=== PATIENT | male | born 1940 | race Caucasian/White ===

== ENCOUNTER 2016-06-16 19:51 | Inpatient (IN) | payer MEDICARE ==
[~2016-06-16] VITALS: Ht 175.3 cm; Wt 79.0 kg
[~2016-06-16 19:51] MED LIST: ACETAMIN325 MG PO; ALEVE220 M1 PO; ALPRAZOLAM0.5 MG PO; ASPIRIN EC81 MG PO; AUGMENTIN500TAB PO; AVELOX400 MG PO; BACLOFEN10 MG PO; BL ADULT ASA81 MG PO; CALCIUM600 M1 OR; CARB/LEVO1 TA5 PO; CIPRO500 MG OR; CIPRO500 MG PO; CIPROFLOXACIN250 MG PO; CIPROFLOXACN500 MG PO; DICYCLOMINE10 MG; DICYCLOMINE10 MG PO; DONEPEZIL10 MG PO; DONEPEZIL5 MG PO; DULCOLAX10 MG RE; E400400 UNIT OR; EC ASPIRIN325 M1 PO; EQ ASPIRIN325 MG OR; FISH OIL300 MG PO; FLEET ENEMA RE; FLOMAX0.4 M1 PO; FLUARIX QUADRIV1 IN1 IM; FUROSEMIDE20 MG PO; GNP RED YEAST RICE OR; HALDOL0.5 MG/TAB PO; HALOPERIDOL0.5 MG PO; HOME O2; IPRATROPIU0.5 MG/3 M IN; KAO-TIN240 MG PO; KLOR-CON 1010 ME1 PO; LASIX 40 MG TAB40 MG PO; LASIX20 MG OR; LEXAPRO20 MG PO; LISINOPRIL10 MG PO; LISINOPRIL20 MG OR; LISINOPRIL20 MG PO; LOPRESSOR 550 MG/TAB PO; LOSARTAN POT50 MG PO; LOTRISONE CREAM15 G1 EX; MEDDOSEPAK PO; METOPROL TAR25 MG PO; MILK OF MAG30 ML/UDC PO; MOBIC15 MG OR; MOTRIN800 MG/TAB PO; MULTIVITAM10 OR; MULTIVITAMI1 OR; MULTIVITAMI1 PO; NAMENDA10 MG PO; NITRO-DUR0.4 MG/HR TD; NITROGLYCER0.2 MG/HR TD; NITROGLYCER0.4 MG SL; NORCO1 TAB PO; OSCAL 500/1 TAB OR; OXYBUTYNIN5 MG PO; PLAVIX75 MG PO; POTASSIUM CHLO10 ME2 PO; PRILOSEC20 MG/CAP PO; PROAIR HFA IN; REMERON15 MG PO; ROBITUSSIN200 MG/10 PO; SEROQUEL25 MG PO; SEROQUEL50 MG PO; SIMVASTATIN10 MG OR; SIMVASTATIN5 MG OR; SINEMET 25/1001 TA2 PO; TUSSIN100 MG/5 M OR; VANTIN100 MG PO; VITAMIN D32000 UNIT OR; WATER PILL; ZITHROMAX500 MG PO; [UNRECOGNIZED DRUG - CODE] OR; [UNRECOGNIZED DRUG - CODE] PO; [UNRECOGNIZED DRUG - OTHER]; [UNRECOGNIZED DRUG - OTHER] MT; [UNRECOGNIZED DRUG - OTHER] MT
[2016-06-16 20:33] LABS: HEMATOCRIT 42.8 % (39.0-50.0); HEMOGLOBIN 13.1 g/dl (14.0-18.0); IMMATURE GRANULOCYTES 0.3 % (0.0-1.0); MEAN CORPUSCULAR HGB 30.6 pG CALC (26.0-32.0); MEAN CORPUSCULAR HGB CONC 30.6 g/L CALC (32.0-36.0); NEUT# 7.43 thou/uL (1.82-7.42); RED BLOOD COUNT 4.28 mill/uL (4.70-6.10); RED CELL DISTRI WIDTH 13.5 % (11.5-15.5)
--- NOTE | 2016-06-16 20:50 | NUR ---
PT TO CT.
--- NOTE | 2016-06-16 21:19 | NUR ---
PT RETURNED FROM CT.
--- NOTE | 2016-06-16 21:20 | NUR ---
UNABLE TO CATH FOR URINE WITH SMALL CATHETER
[2016-06-16 22:28] LABS: MYOGLOBIN 68 ng/mL (0 - 121)
[2016-06-16 22:36] LABS: ALBUMIN 3.3 g/dL (3.2-5.0); ALKALINE PHOSPHATASE 68 u/l (38-126); BILIRUBIN, TOTAL 0.5 mg/dL (0.0-1.4); CARBON DIOXIDE 24 mmol/l (22-30); SGOT/AST 34 u/l (19-48); SGPT/ALT 47 u/l (11-66); TOTAL PROTEIN 6.3 g/dL (6.3-8.2)
[2016-06-16 22:38] LABS: GLUCOSE 117 mg/dL (82-115)
[2016-06-16 22:39] LABS: ANION GAP 17 (6-22 (CALC)); BUN 56 mg/dL (8-23); BUN/CREATININE RATIO 47 (12-20 (CALC)); CALCIUM 8.7 mg/dL (8.4-10.2); CHLORIDE 130 mmol/l (95-108); CREATININE 1.2 mg/dL (0.7-1.3); GFR 59 ML/MIN (>=60 (CALC)); GFR FOR AFR.AMER. > 60 ML/MIN (>=60 (CALC)); POTASSIUM 3.8 mmol/l (3.5-5.1); SODIUM 167 mmol/l (137-146)
--- NOTE | 2016-06-16 22:53 | NUR ---
PT WITH EYES CLOSED, RESPONDS TO LOUD VERBAL STIMULI. DR CERNA INFORMED UNABLE TO PASS STRAIGHT CATH FOR URINE COLLECTION.
--- NOTE | 2016-06-16 23:56 | NUR ---
PT DIFFICULT TO AROUSE, RESP 18 B/P 98/62 SA02 97% ON 2L 02
--- NOTE | 2016-06-17 01:14 | NUR ---
PT OPENS EYES WITH LOUD VERBAL STIMULI.
--- NOTE | 2016-06-17 01:34 | NUR ---
REPORT CALLED TO [facility].
--- NOTE | 2016-06-17 01:38 | NUR ---
PT TO 271 VIA STRETCHER WITH TELE.
[2016-06-17 01:45] VITALS: BP 99/66
--- NOTE | 2016-06-17 01:45 | NUR ---
RECEIVED PT FROM ER VIA STRETCHER ACCOMPANIED BY TATO BEGUM. TRANSFERRED TO BED WITH ASSISTANCE X3, RESPIRAITONS EVEN AND UNLABORED, PT TURNS HEAD TOWARDS VOICE. OPENS EYES ON COMMAND AND STICKS OUT TONGUE, DOES NOT ELECTRONICS SUPERVISOR MY HANDS ON COMMAND OR FOLLOW ANY OTHER COMMANDS. TELE IN PLACE. ADULT BREAF IN PLACE WITH SCANT AMOUNT OF BRIGHT RED BLOOD COMMING FROM [place]. IV FLUIDS INFUSING TO LFA WITH NO COMPLICATIONS. ORAL CAVITY MOITED WITH WATER AND LIP BALM. BED ALARM APPLIED. WILL CONTINUE TO MONITOR.
--- NOTE | 2016-06-17 06:16 | NUR ---
TURNED TO LEFT SIDE, RESTING WITH EYES CLOSED LOUD SNORING. RESPIRATIONS EVEN AND UNLABORED.
--- NOTE | 2016-06-17 07:17 | NUR ---
BEDSIDE REPORT RECEIVED FROM SHY MAYNARD. PT SNORING LOUDLY. BED ALARM ATTACHED TO GOWN FOR SAFETY. WILL CONTINUE TO MONITOR.
[2016-06-17 08:11] LABS: ANION GAP 13 (6-22 (CALC)); BUN 55 mg/dL (8-23); BUN/CREATININE RATIO 44 (12-20 (CALC)); CALCIUM 8.2 mg/dL (8.4-10.2); CARBON DIOXIDE 27 mmol/l (22-30); CHLORIDE 129 mmol/l (95-108); CREATININE 1.3 mg/dL (0.7-1.3); GFR 54 ML/MIN (>=60 (CALC)); GFR FOR AFR.AMER. > 60 ML/MIN (>=60 (CALC)); GLUCOSE 141 mg/dL (82-115); POTASSIUM 3.8 mmol/l (3.5-5.1)
[2016-06-17 08:12] LABS: SODIUM 165 mmol/l (137-146)
--- NOTE | 2016-06-17 08:23 | NUR ---
DR. WEBBER CALLED WITH CRITICAL LAB VALUE, NS OF 165. NEW ORDER TO INCREASE IVF TO 150 ML/HR.
[2016-06-17 11:35] VITALS: BP 102/58
--- NOTE | 2016-06-17 13:00 | NUR ---
PT'S SISTER IN TO VISIT AT THIS TIME. NO CHANGES. WILL CONTINUE TO MONITOR.
[2016-06-17 15:11] VITALS: BP 136/67
[2016-06-17 17:17] LABS: BUN 52 mg/dL (8-23); BUN/CREATININE RATIO 52 (12-20 (CALC)); CALCIUM 8.1 mg/dL (8.4-10.2); CARBON DIOXIDE 24 mmol/l (22-30); GFR > 60 ML/MIN (>=60 (CALC)); GFR FOR AFR.AMER. > 60 ML/MIN (>=60 (CALC)); GLUCOSE 134 mg/dL (82-115); POTASSIUM 4.3 mmol/l (3.5-5.1)
[2016-06-17 17:28] LABS: ANION GAP 14 (6-22 (CALC)); SODIUM 162 mmol/l (137-146)
[2016-06-17 17:29] LABS: CHLORIDE 128 mmol/l (95-108)
--- NOTE | 2016-06-17 18:00 | NUR ---
CONDOM CATHETER APPLIED PER DR. WEBBER FOR STRICT I&O'S.
--- NOTE | 2016-06-17 19:05 | NUR ---
REPORT RECEIVED FROM JEAN VERDE,[facility]; PT'S CONDOM CATHETER WAS PULLED OFF AND BEDDING IS WET, PT.CLEANED AND BEDDING CHANGED; CATHETER WAS REPLACED AND IS NOW DRAINING YELLOW CLOUDY URINE; WILL CONTINUE TO MONITOR
[2016-06-17 19:30] VITALS: BP 129/70
--- NOTE | 2016-06-17 20:00 | NUR ---
PT.BED ALARM SOUNDED, PT.IS CONFUSED AND TRYING TO COMMUNICATE; PATIENT PROVIDED PO FLUIDS AND REPOSITIONED; UPON INSPECTION, PT.PULLED IV PARTIALLY OUT, SLIGHT INFILTRATION IN AREA OF IV; AFIA,MINER HELPER PLACED A NEW IV SITE AND OLD EMS SITE WAS REMOVED INTACT; BED ALARM ON, WILL CONTINUE TO MONITOR
[2016-06-17 23:42] VITALS: BP 131/59
--- NOTE | 2016-06-18 03:00 | NUR ---
PT.PROVIDED FULL BED BATH AND BEDDING RENEWED; BED ALARM ON AND PT.PROVIDED PO FLUIDS OF APPLE JUICE X2 AND WATER
[2016-06-18 03:50] VITALS: BP 106/76
--- NOTE | 2016-06-18 03:58 | NUR ---
PT.V/S ASSESSED, RECTAL TEMP TAKEN @96.5, PT.CONDOM CATHETER DRAINING WELL OF YELLOW CLOUDY URINE, CATHETER APPEARS TO BE IN PLACE, BUT SEEMS TO BE LEAKING AROUND CATHETER, STILL DRAINING INTO CATHETER BAG AT THIS TIME AT A GOOD RATE; SCANT BM FORMED BROWN INCONTINENT; DEBBIE-CARE PERFORMED
[2016-06-18 05:03] LABS: URINE BILIRUBIN - DIPSTICK NEGATIVE (NEGATIVE); URINE BLOOD DIPSTICK SMALL (NEGATIVE); URINE CLARITY CLEAR; URINE COLOR YELLOW; URINE GLUCOSE - DIPSTICK NEGATIVE (NEGATIVE); URINE KETONE NEGATIVE (NEGATIVE); URINE NITRITE - DIPSTICK NEGATIVE (Negative); URINE PROTEIN - DIPSTICK NEGATIVE (NEG-TRACE); URINE UROBILINOGEN - DIPSTICK 0.2 E.U./dL (0.2)
[2016-06-18 05:08] LABS: HEMATOCRIT 39.1 % (39.0-50.0); HEMOGLOBIN 12.3 g/dl (14.0-18.0); IMMATURE GRANULOCYTES 0.4 % (0.0-1.0); MEAN CORPUSCULAR HGB 31.1 pG CALC (26.0-32.0); MEAN CORPUSCULAR HGB CONC 31.5 g/L CALC (32.0-36.0); NEUT# 5.21 thou/uL (1.82-7.42); RED BLOOD COUNT 3.95 mill/uL (4.70-6.10)
[2016-06-18 05:16] LABS: URINE LEUK ESTERASE LARGE (NEGATIVE)
[2016-06-18 05:21] LABS: URINE BACTERIA MANY hpf; URINE WBC 20-50 WBC/hpf (0-5)
[2016-06-18 05:41] LABS: ALKALINE PHOSPHATASE 60 u/l (38-126); ANION GAP 13 (6-22 (CALC)); BILIRUBIN, TOTAL 0.6 mg/dL (0.0-1.4); BUN 43 mg/dL (8-23); BUN/CREATININE RATIO 44 (12-20 (CALC)); CALCIUM 7.9 mg/dL (8.4-10.2); CARBON DIOXIDE 28 mmol/l (22-30); GFR > 60 ML/MIN (>=60 (CALC)); GFR FOR AFR.AMER. > 60 ML/MIN (>=60 (CALC)); GLUCOSE 146 mg/dL (82-115); POTASSIUM 3.1 mmol/l (3.5-5.1); SGOT/AST 40 u/l (19-48); SGPT/ALT 74 u/l (11-66); SODIUM 154 mmol/l (137-146); TOTAL PROTEIN 5.9 g/dL (6.3-8.2)
[2016-06-18 05:56] LABS: CHLORIDE 116 mmol/l (95-108)
[2016-06-18 07:43] VITALS: BP 118/73
--- NOTE | 2016-06-18 09:40 | NUR ---
ASSESSMENT IS COMPLETED: ROSALES INTACT AND REMAINS TO BE LEAKING. IV SITE IS FREE FROM REDNESS OR EDEMA.
[2016-06-18 10:57] VITALS: BP 100/60
--- NOTE | 2016-06-18 12:15 | NUR ---
PT IS RELAXING IN BED WITH NO DISTRESS NOTED. IV SITE IS FREE FROM REDNESS OR EDEMA PT KEEPS TRYING TO GET OUT OF THE CHAIR, AND BED.
--- NOTE | 2016-06-18 14:12 | NUR ---
PT WAS LAYING IN BED, NURSE (JAYME) SIGNALLED TO ME THAT HE WOULD NOT BE ABLE TO TALK.
[2016-06-18 15:41] VITALS: BP 113/78
--- NOTE | 2016-06-18 15:41 | NUR ---
PT ATTEMPTS TO GET OUT OF BED , CONTINUE TO INSTRUCT PT THE NEED TO STAY IN BED , HE WAS IN THE CHAIR EARLIER BUT WANTED TO GET BACK IN TO BED.
--- NOTE | 2016-06-18 16:30 | NUR ---
PT CONTINUES TO ATTEMPT TO GET OUT OF BED . IV SITE IS FREE FROM REDNESS OR EDEMA.
--- NOTE | 2016-06-18 19:30 | NUR ---
PATIENT RESTING IN BED AT THIS TIME WITH BED ALARM ATTATCHED TO HIS GOWN FOR PATIENT SAFETY. PATIENT WITH GARBLED SPEECH AND DISORIENTED. PATIENT IS ONLY ORIENTED TO PERSON AT THIS TIME. PATIENT WITH IV SITE TO RIGHT AC WITH D51/2 NS PATENT AND INFUSING AT 100CC/HR. CALL LIGHT IN REACH. WILL CONT TO MONITOR.
[2016-06-18 20:15] VITALS: BP 134/81
--- NOTE | 2016-06-18 22:00 | NUR ---
PATIENT INCONT OF BOWEL AND BLADDER. PATIENT WAS WASHED UP WITH SOAP AND WATER. TURNED AND REPOSITIONED BUT PATIENT CONT TO GO BACK TO HIS LEFT SIDE. PATIENT REFUSING TO TAKE HIS PO MEDS-FINALLY WAS ABLE TO GET HIS PO PILLS IN WITH RAYMUNDO PUDDING BUT PATIENT IS REFUSING TO TAKE ORAL KCL. WILL CONT TO TRY TO GET HIM TO DRINK IT THRU THE NIGHT. PATIENT CONT TO BE CONFUSED AND DISORIENTED. BED ALARM IN PLACE FOR PATIENT SAFETY. PATIENT REFUSING TO LEAVE O2 CANNULA IN PLACE. CALL LIGHT IN REACH. WILL CONT TO MONITOR.
[2016-06-18 23:11] VITALS: BP 140/94
--- NOTE | 2016-06-19 | NUR ---
PATIENT IS CALMER AT THIS TIME APPEARS SLEEPING WITH EYES CLOSED. CALL LIGHT IN REACH. BED ALARM IN PLACE FOR PATIENT SAFETY. WILL CONT TO MONITOR.
[2016-06-19 03:42] VITALS: BP 159/84
--- NOTE | 2016-06-19 05:34 | NUR ---
PATIENT IS BEING COMBATIVE, AGITATED AND AGGRESSIVE GRABBING AT STAFF-PATIENT WAS INCONT OF BOWEL AND BLADDER AND WHEN CLEANING PATIENT WITH SOAP AND WATER. PATIENT IS CRYING OUT LOAD AND YELLING. DR. WEBBER CALLED AND ORDER FOR ISAAC FRANCO. WILL MEDICATE PATIENT SOON IT IS PROFILED. BED ALARM IN PLACE FOR PATIENT SAFETY. WILL CONT TO MONITOR.
[2016-06-19 05:55] LABS: HEMATOCRIT 40.6 % (39.0-50.0); HEMOGLOBIN 12.7 g/dl (14.0-18.0); IMMATURE GRANULOCYTES 0.2 % (0.0-1.0); MEAN CELL VOLUME 98.1 fL CALC (80.0-100.0); MEAN CORPUSCULAR HGB 30.7 pG CALC (26.0-32.0); MEAN CORPUSCULAR HGB CONC 31.3 g/L CALC (32.0-36.0); NEUT# 5.02 thou/uL (1.82-7.42); RED BLOOD COUNT 4.14 mill/uL (4.70-6.10); RED CELL DISTRI WIDTH 12.7 % (11.5-15.5)
--- NOTE | 2016-06-19 06:01 | NUR ---
PATIENT MEDICATED WITH HALDOL 3MG IM LEFT DELTOID WITH ASSIST OF 1 STAFF MEMBER. PATIENT CONT TO BE COMBATIVE AND AGITATED. BED ALARM IN PLACE FOR PATIENT SAFETY. CALL LIGHT IN REACH. WILL CONT TO MONITOR.
[2016-06-19 06:13] LABS: ALBUMIN 3.5 g/dL (3.2-5.0); ALKALINE PHOSPHATASE 74 u/l (38-126); ANION GAP 17 (6-22 (CALC)); BILIRUBIN, TOTAL 0.6 mg/dL (0.0-1.4); BUN 29 mg/dL (8-23); BUN/CREATININE RATIO 32 (12-20 (CALC)); CALCIUM 8.5 mg/dL (8.4-10.2); CARBON DIOXIDE 25 mmol/l (22-30); CHLORIDE 118 mmol/l (95-108); CREATININE 0.9 mg/dL (0.7-1.3); GFR > 60 ML/MIN (>=60 (CALC)); GFR FOR AFR.AMER. > 60 ML/MIN (>=60 (CALC)); GLUCOSE 94 mg/dL (82-115); POTASSIUM 4.7 mmol/l (3.5-5.1); SGOT/AST 29 u/l (19-48); SGPT/ALT 68 u/l (11-66); SODIUM 155 mmol/l (137-146); TOTAL PROTEIN 6.7 g/dL (6.3-8.2)
[2016-06-19 09:05] VITALS: BP 159/84
--- NOTE | 2016-06-19 09:05 | NUR ---
ASSESSMENT IS COMPLETED: PT STILL REMAINS TO BE RESTING AT THIS TIME. IV SITE IS FREE FROM REDNESS OR EDEMA. CONTINUE TO OSBERVE AND MONITOR.
[2016-06-19 15:50] VITALS: BP 119/62
[2016-06-19 19:15] VITALS: BP 159/79
--- NOTE | 2016-06-19 19:25 | NUR ---
PT RESTING ON LEFT SIDE WITH EYES CLOSED, RESPIRAITONS EVEN AND UNLABORED ON RA. TELE IN PLACE. D5 1/2NS INFUSING TO RAC AT 100CC/HR. RESPONDS EASILY TO VERBAL COMMAND, DOES NOT ANSWEAR ANY QUESTIONS APPROPRIATELY, ONLY MUMBLES. ABLE TO DRINK AN ENTIRE ENSURE AT THIS TIME. BED ALARM APPLIED. WILL CONTINUE TO MONITOR.
--- NOTE | 2016-06-19 22:00 | NUR ---
INCONTINENT OF LARGE AMOUNT YELLOW URINE, DEBBIE CARE PROVIDED, CLEAN BREAF APPLIED. REPOSITIONED TO RIGHT SIDE.
[2016-06-19 23:57] VITALS: BP 97/54
--- NOTE | 2016-06-20 | NUR ---
REPOSITIONED TO SEMIFOWLERS RESPIRATIONS EVEN AND UNLABORED. IV FLUIDS INFUSING TO RAC WITH NO COMPLICATIONS.
--- NOTE | 2016-06-20 02:00 | NUR ---
INCONTINENT OF LARGE AMOUNT OF YELLOW URINE, DEBBIE CARE AND BED BATH PROVIDED, CLEAN LINENS AND GOWN APPLIED. PT WHIMPERING AND YELLING DURING BATH, NO TEARS NOTICED. REPOSITIONED TO RIGHT SIDE. IV FLUIDS INFUSING TO LAC WITH NO COMPLICATIONS.
--- NOTE | 2016-06-20 04:00 | NUR ---
AM BLOOD DRAWN BY DOUGIE FROM LAB, PT NON COOPERATIVE, PUSHING STAFF AWAY, ARMS HELD DOWN BY TWO STAFF. BLOOD OBTAINED AND SENT TO LAB.
[2016-06-20 04:15] VITALS: BP 124/71
[2016-06-20 06:58] LABS: HEMATOCRIT 37.3 % (39.0-50.0); HEMOGLOBIN 12.1 g/dl (14.0-18.0); IMMATURE GRANULOCYTES 0.4 % (0.0-1.0); MEAN CELL VOLUME 97.1 fL CALC (80.0-100.0); MEAN CORPUSCULAR HGB 31.5 pG CALC (26.0-32.0); MEAN CORPUSCULAR HGB CONC 32.4 g/L CALC (32.0-36.0); NEUT# 5.36 thou/uL (1.82-7.42); RED BLOOD COUNT 3.84 mill/uL (4.70-6.10)
[2016-06-20 07:23] LABS: ANION GAP 12 (6-22 (CALC)); BUN 21 mg/dL (8-23); BUN/CREATININE RATIO 22 (12-20 (CALC)); CALCIUM 8.2 mg/dL (8.4-10.2); CARBON DIOXIDE 24 mmol/l (22-30); CHLORIDE 116 mmol/l (95-108); CREATININE 0.9 mg/dL (0.7-1.3); GFR > 60 ML/MIN (>=60 (CALC)); GFR FOR AFR.AMER. > 60 ML/MIN (>=60 (CALC)); GLUCOSE 89 mg/dL (82-115); POTASSIUM 3.5 mmol/l (3.5-5.1); SODIUM 148 mmol/l (137-146)
--- NOTE | 2016-06-20 08:00 | NUR ---
ASSESSMENT IS COMPLETED: PT IS RESTING IN BED WITH NO DISTRESS NOTED. IV SITE IS FREE FROM REDNESS OR EDEMA. CONTINUE TO OBSERVE AND MONITOR
--- NOTE | 2016-06-20 12:30 | NUR ---
PT IS RESTING WITH EYES CLOSED AND NO DISTRESS NOTED. IV SITE IS FREE FROM REDNESS OR EDEMA.
[2016-06-20 14:00] VITALS: BP 113/71
[2016-06-20 16:00] VITALS: BP 142/73
--- NOTE | 2016-06-20 16:30 | NUR ---
PT IS RESTING AND IS PERMITTING STAFF TO CLEAN HIM UP. NO DISTRESS NOTED. IV SITE IS FREE FROM REDNESS OR EDEMA.
[2016-06-20 19:50] VITALS: BP 145/83
--- NOTE | 2016-06-20 20:00 | NUR ---
PT.REPORT RECEIVED FROM JIHAN DELACRUZ; PT.WAS DISTRESSED AND PULLING ON TELEMETRY WIRES; PT.PROVIDED CHOCOLATE MILK AND TELEMETRY PUT BACK IN PLACE; PT.SETTLED IN RESPONSE TO RAYMUNDO.MILK
--- NOTE | 2016-06-20 21:00 | NUR ---
PT.CLEANED OF INCONTINENT URINE AND SOFT SMALL AMOUNT OF BOWEL; MEDICATIONS PROVIDED W/ICECREAM
[2016-06-21 02:10] VITALS: BP 137/64
--- NOTE | 2016-06-21 02:45 | NUR ---
PT.CLEANED OF URINE AND BOWEL INCONTINENCE AND REPOSITIONED; PT.BECAME VERY AGITATED, KICKING AND TRYING TO HIT; PT.SETTLED DOWN EVENTUALLY AFTER BEING SETTLED BACK IN AND LEFT ALONE; BED ALARM ON
--- NOTE | 2016-06-21 03:30 | NUR ---
PT.BECOMING AGITATED, PULLING WIRES, REMOVING BEDDING AND CLOTHING; MEDICATED VIA PUDDING XANAX ORDERED AND PROVIDED PO WATER; PT. REDRESSED AND SETTLED BACK INTO BED, REPOSITIONED; BED ALARM ON
[2016-06-21 05:00] VITALS: BP 130/76
[2016-06-21 05:37] LABS: HEMATOCRIT 35.3 % (39.0-50.0); HEMOGLOBIN 11.5 g/dl (14.0-18.0); IMMATURE GRANULOCYTES 0.5 % (0.0-1.0); MEAN CELL VOLUME 94.6 fL CALC (80.0-100.0); MEAN CORPUSCULAR HGB 30.8 pG CALC (26.0-32.0); MEAN CORPUSCULAR HGB CONC 32.6 g/L CALC (32.0-36.0); NEUT# 5.04 thou/uL (1.82-7.42); RED BLOOD COUNT 3.73 mill/uL (4.70-6.10); RED CELL DISTRI WIDTH 12.3 % (11.5-15.5)
[2016-06-21 05:40] LABS: ANION GAP 11 (6-22 (CALC)); BUN 18 mg/dL (8-23); BUN/CREATININE RATIO 19 (12-20 (CALC)); CALCIUM 8.5 mg/dL (8.4-10.2); CARBON DIOXIDE 27 mmol/l (22-30); CHLORIDE 111 mmol/l (95-108); GFR > 60 ML/MIN (>=60 (CALC)); GFR FOR AFR.AMER. > 60 ML/MIN (>=60 (CALC)); GLUCOSE 110 mg/dL (82-115); POTASSIUM 3.7 mmol/l (3.5-5.1); SODIUM 145 mmol/l (137-146)
--- NOTE | 2016-06-21 07:35 | NUR ---
BEDSIDE REPORT RECEIVED FROM JEAN TURPIN. PT RESPONDS TO VERBAL AND TACTILE STIMULI WITH GRUNTING. DOES NOT APPEAR IN PAIN. FULL BED BATH AND LINEN CHANGE DONE AT THIS TIME.
[2016-06-21 09:15] VITALS: BP 141/84
--- NOTE | 2016-06-21 11:39 | NUR ---
PT STILL SLEEPING. WILL CONTINUE TRYING TO AWAKEN PT FREQUENTLY.
[2016-06-21 16:00] VITALS: BP 112/63
--- NOTE | 2016-06-21 16:12 | NUR ---
PT SLEEPING AT THIS TIME.
[2016-06-21 19:32] VITALS: BP 104/64
--- NOTE | 2016-06-21 20:05 | NUR ---
REPORT RECEIVED FROM JIHAN VERDE; PT.SLEEPING IN BED AT THIS TIME BED ALARM ON; NO S/S OF DISTRESS AT THIS TIME
--- NOTE | 2016-06-22 01:00 | NUR ---
PT.ANXIOUS AND CALLING OUT, PT CLEANED OF URINE INCONTINENCE; PT.IV IS RED AND LOOKS DISLODGED SOMEWHAT, PARTIAL DRAW OF BLOOD, BUT DIFFICULT, CATHETER IS OBVIOUSLY PULLED PARTIALLY OUT AND BENT, WILL FOLLOW-UP AND REPLACE IV
[2016-06-22 04:53] VITALS: BP 140/90
[2016-06-22 05:28] LABS: ANION GAP 12 (6-22 (CALC)); BUN 16 mg/dL (8-23); BUN/CREATININE RATIO 19 (12-20 (CALC)); CALCIUM 8.8 mg/dL (8.4-10.2); CARBON DIOXIDE 26 mmol/l (22-30); CHLORIDE 108 mmol/l (95-108); CREATININE 0.9 mg/dL (0.7-1.3); GFR > 60 ML/MIN (>=60 (CALC)); GFR FOR AFR.AMER. > 60 ML/MIN (>=60 (CALC)); GLUCOSE 90 mg/dL (82-115); POTASSIUM 3.7 mmol/l (3.5-5.1); SODIUM 142 mmol/l (137-146)
--- NOTE | 2016-06-22 06:29 | NUR ---
PT.HAVING DIFFICULTY DRINKING HIS WATER, HAS TO BE EXTREMELY UPRIGHT AND FORCED TO TAKE SLOW DRINKS, PT.GULPS AND CHOKES.
[2016-06-22 06:44] LABS: HEMATOCRIT 35.6 % (39.0-50.0); HEMOGLOBIN 11.9 g/dl (14.0-18.0); IMMATURE GRANULOCYTES 0.4 % (0.0-1.0); MEAN CELL VOLUME 93.4 fL CALC (80.0-100.0); MEAN CORPUSCULAR HGB 31.2 pG CALC (26.0-32.0); MEAN CORPUSCULAR HGB CONC 33.4 g/L CALC (32.0-36.0); NEUT# 5.59 thou/uL (1.82-7.42); RED BLOOD COUNT 3.81 mill/uL (4.70-6.10); RED CELL DISTRI WIDTH 12.6 % (11.5-15.5)
--- NOTE | 2016-06-22 07:08 | NUR ---
BEDSIDE REPORT RECEIVED FROM JEAN TURPIN. PT SLEEPING AT THIS TIME. BED ALARM ON.
[2016-06-22 08:11] VITALS: BP 128/69
[2016-06-22 08:14] VITALS: BP 128/69
[2016-06-22] MEDS ORDERED: CIPROFLOXACN250 MG PO (08:46)
--- NOTE | 2016-06-22 12:01 | NUR ---
ATTEMPTED TO CALL REPORTS TO R, REMAINED ON HOLD FOR 5 MINUTES. WILL MAKE ANOTHER ATTEMPT AT A LATER TIME.
--- NOTE | 2016-06-22 12:06 | NUR ---
REPORT CALLED TO LUZ MARIA AT [facility].
--- NOTE | 2016-06-22 13:33 | NUR ---
Discharge instructions given. Patient verbalizes understanding of same. Discharged in stable condition via Wheelchair to Home with staff. All belongings sent with pt.
== END 2016-06-22 13:36 | DRG 641 ==
LOC: ENPENDDIS → ED 19:51 → ED-I 23:40 → ED 06-17 00:22 → MS2 06-17 00:23
PROVIDERS: Emergency Medicine; ADMIT Internal Medicine Geriatric Medicine; ATTEND Internal Medicine Geriatric Medicine
DX: E87.0 Hyperosmolality and hypernatremia (principal); E86.0 Dehydration; F03.91 Unspecified dementia, unspecified severity, with behavioral disturbance; N39.0 Urinary tract infection, site not specified; I10 Essential (primary) hypertension; I25.10 Atherosclerotic heart disease of native coronary artery without angina pectoris; J44.9 Chronic obstructive pulmonary disease, unspecified; M19.90 Unspecified osteoarthritis, unspecified site; Z66 Do not resuscitate; Z99.3 Dependence on wheelchair; Z86.73 Personal history of transient ischemic attack (TIA), and cerebral infarction without residual deficits